=== PATIENT | female | born 1960 | race Caucasian/White ===

== ENCOUNTER → 2020-12-27 | Outpatient (CLI) | payer OTHER ==
[~2020-12-27] MED LIST: ATORVASTATIN CA20 MG PO; CLEOCIN HCL300 MG PO; DELSYM30 MG/5 ML PO; EXPECTORANT200 MG PO; GLUCOPHAGE XR500 MG PO; HUMALOG 10100 UNITS/ SC; IBUPROFEN600 MG PO; LANTUS INS100 UTS/M1 SC; MEDROL DOSEPAK 24 MG PO; PANTOPRAZOLE SO40 MG PO; PENVEE K 500 M500 MG PO; PREDNISONE 50 M50 MG PO; PREDNISONE20 MG PO; TESSALON PERLE100 MG PO; VIBRAMYCIN100 MG PO; VISTARIL 50 MG50 MG PO; Voltaren Gel 1 % TOP; ZYRTEC10 MG PO; [UNRECOGNIZED DRUG - OTHER] MC; [UNRECOGNIZED DRUG - REMARK]; [UNRECOGNIZED DRUG - SUPPLY] SQ
[2020-12-27 16:32] LABS: BUN/CREATININE RATIO 27 (0-10)
[2020-12-28 10:12] LABS: CREATININE, URINE 113.1 mg/dL (Not Estab.)
== END ==
LOC: LAB 14:53
PROVIDERS: Family Medicine
DX: E11.9 Type 2 diabetes mellitus without complications (principal); E78.5 Hyperlipidemia, unspecified; K21.9 Gastro-esophageal reflux disease without esophagitis; Z79.4 Long term (current) use of insulin; Z79.899 Other long term (current) drug therapy
CPT/HCPCS: 36415; 80053; 80061; 82043; 82570; 82607; 83735

== ENCOUNTER 2021-01-30 17:50 | Emergency (ER) | payer OTHER ==
[~2021-01-30 17:50] MED LIST changes: -MEDROL DOSEPAK 24 MG PO; -TESSALON PERLE100 MG PO; -VIBRAMYCIN100 MG PO
[2021-01-30 18:51] LABS: HEMOGLOBIN 14.7 gm/dl (12.3-15.3); RED BLOOD COUNT 4.87 M/UL (4.00-5.10); WHITE BLOOD COUNT 7.5 K/UL (4.5-11.0)
[2021-01-30 19:11] LABS: BUN/CREATININE RATIO 22 (0-10)
[2021-01-30] MEDS ORDERED: VIBRAMYCIN100 MG PO (20:52)
[2021-01-30] MEDS ORDERED: MEDROL DOSEPAK 24 MG PO (20:52)
[2021-01-30] MEDS ORDERED: TESSALON PERLE100 MG PO (20:52)
== END 2021-01-30 21:03 | disposition home or self-care (01) ==
LOC: ER1 17:50
PROVIDERS: Physician Assistant
DX: J44.0 Chronic obstructive pulmonary disease with (acute) lower respiratory infection (principal); J20.9 Acute bronchitis, unspecified; R19.7 Diarrhea, unspecified; E11.9 Type 2 diabetes mellitus without complications; I10 Essential (primary) hypertension; E78.5 Hyperlipidemia, unspecified; F17.210 Nicotine dependence, cigarettes, uncomplicated; J44.9 Chronic obstructive pulmonary disease, unspecified; Z20.822 Contact with and (suspected) exposure to COVID-19; Z79.4 Long term (current) use of insulin; Z71.6 Tobacco abuse counseling
CPT/HCPCS: 0240U; 71045; 71250; 80053; 82550; 82553; 83874; 84484; 85025; 87081; 87880; 93005; 96374; 99284; J1100

== ENCOUNTER 2021-06-01 17:15 | Emergency (ER) | payer OTHER | END 2021-06-01 20:22 | disposition home or self-care (01) | LOC: ER1 17:15 | DX: Z20.822 Contact with and (suspected) exposure to COVID-19 (principal); E11.9 Type 2 diabetes mellitus without complications; I10 Essential (primary) hypertension; Z87.891 Personal history of nicotine dependence | CPT/HCPCS: 99283; U0002 ==

== ENCOUNTER → 2021-06-01 | Outpatient (CLI) | payer OTHER ==
[~2021-06-01] MED LIST changes: +MEDROL DOSEPAK 24 MG PO; +TESSALON PERLE100 MG PO; +VIBRAMYCIN100 MG PO
== END ==
LOC: EXRD 11:00
DX: I73.9 Peripheral vascular disease, unspecified (principal)
CPT/HCPCS: 93925

== ENCOUNTER 2022-04-01 10:44 | Emergency (ER) | payer OTHER ==
[2022-04-01 11:14] LABS: HEMOGLOBIN 14.1 gm/dl (12.3-15.3); RED BLOOD COUNT 4.69 M/UL (4.00-5.10); WHITE BLOOD COUNT 8.6 K/UL (4.5-11.0)
[2022-04-01 11:36] LABS: BUN/CREATININE RATIO 23 (0-10)
[2022-04-01] MEDS ORDERED: PROVENTIL HFA6.7 GM INH (14:54)
[2022-04-01] MEDS ORDERED: AEROCHAMBER1 EA XX (14:54)
[2022-04-01] MEDS ORDERED: BENZONATATE200 MG PO (14:54)
== END 2022-04-01 15:05 | disposition home or self-care (01) ==
LOC: ER1 10:44
DX: R06.00 Dyspnea, unspecified (principal); R05.9 Cough, unspecified; J44.9 Chronic obstructive pulmonary disease, unspecified; E10.9 Type 1 diabetes mellitus without complications; I10 Essential (primary) hypertension; F17.200 Nicotine dependence, unspecified, uncomplicated; Z20.822 Contact with and (suspected) exposure to COVID-19
CPT/HCPCS: 0240U; 71045; 80053; 82550; 82553; 84484; 85025; 93005; 99285